=== PATIENT | male | born 1980 | race Hispanic/Latino ===

== ENCOUNTER 2016-06-19 23:29 | Emergency (ER) | payer MEDICAID, OTHER ==
[~2016-06-19] VITALS: Ht 157.5 cm; Wt 81.8 kg
[2016-06-19 23:32] VITALS: BP 136/101; PULSE 88; RESP 16; O2SAT 97
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
[2016-06-20 01:46] VITALS: BP 131/94; PULSE 82; RESP 16; O2SAT 99
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
== END 2016-06-20 01:47 | disposition home or self-care (01) ==
LOC: SED 23:29
DX: S40.021A Contusion of right upper arm, initial encounter (principal); S06.9X9A Unspecified intracranial injury with loss of consciousness of unspecified duration, initial encounter; Y04.0XXA Assault by unarmed brawl or fight, initial encounter; Y93.89 Activity, other specified; Y92.89 Other specified places as the place of occurrence of the external cause; Y99.8 Other external cause status; E11.9 Type 2 diabetes mellitus without complications